=== PATIENT | female | born 1965 | race African-American/Black ===

== ENCOUNTER 2017-04-30 22:55 | Emergency (ER) | payer OTHER ==
[~2017-04-30] VITALS: Ht 167.6 cm; Wt 82.0 kg
[~2017-04-30 22:55] MED LIST: LISI-186 PO; METOPROLOL
[2017-05-01] MEDS ORDERED: ONDANSETRON 4MG ODT PO STA (00:48)
[2017-05-01] MEDS ORDERED: KETOROLAC 30MG/ML VIAL IV STA (00:48)
[2017-05-01] MEDS ORDERED: CLINDAMYCIN 600 MG in DEXTROSE 5% WATER 50 ML IV ONE (01:00)
[2017-05-01] MEDS ORDERED: HYDROCODONE/ACETAMINOPHEN 10/325MG TABLET PO ONE (01:30)
[2017-05-01 03:20] VITALS: BP 137/92
== END 2017-05-01 03:24 | disposition home or self-care (01) ==
LOC: ER 22:55
DX: K04.7 Periapical abscess without sinus (principal); I10 Essential (primary) hypertension; Z90.49 Acquired absence of other specified parts of digestive tract; Z88.6 Allergy status to analgesic agent
CPT/HCPCS: 96365; 96375; 99284; J1885; J3490; Q0162; Z7610; J7060

== ENCOUNTER 2018-03-31 16:21 | Emergency (ER) | payer OTHER ==
[~2018-03-31] VITALS: Ht 167.6 cm; Wt 86.0 kg
[2018-03-31] MEDS ORDERED: ACETAMINOPHEN 500MG TABLET PO ONE (22:30)
[2018-03-31] MEDS ORDERED: LIDOCAINE 5% PATCH TOP SCH (22:30)
[2018-04-01 00:21] VITALS: BP 150/96
== END 2018-04-01 00:24 | disposition home or self-care (01) ==
LOC: ER 18:06
DX: M54.6 Pain in thoracic spine (principal); I10 Essential (primary) hypertension; V49.49XA Driver injured in collision with other motor vehicles in traffic accident, initial encounter; Y93.89 Activity, other specified; Y92.414 Local residential or business street as the place of occurrence of the external cause
CPT/HCPCS: 72070; 99284

== ENCOUNTER 2019-11-28 23:09 | Emergency (ER) | payer OTHER ==
[~2019-11-28] VITALS: Ht 167.6 cm; Wt 87.0 kg
[2019-11-28 23:19] VITALS: BP 138/95
[2019-11-28] MEDS ORDERED: KETOROLAC 30MG/ML VIAL IM ONE (23:45)
== END 2019-11-29 02:56 | disposition home or self-care (01) ==
LOC: ER 23:09
DX: M54.5 Low back pain (principal); G89.29 Other chronic pain; M25.552 Pain in left hip; M25.551 Pain in right hip; I10 Essential (primary) hypertension; Z90.49 Acquired absence of other specified parts of digestive tract; Z88.6 Allergy status to analgesic agent; Z79.899 Other long term (current) drug therapy; W10.8XXA Fall (on) (from) other stairs and steps, initial encounter; Y93.01 Activity, walking, marching and hiking; Y92.89 Other specified places as the place of occurrence of the external cause; Y99.8 Other external cause status
CPT/HCPCS: 72131; 73521; 96372; 99284; J1885

== ENCOUNTER 2021-04-15 07:28 | Emergency (ER) | payer OTHER ==
[~2021-04-15] VITALS: Ht 172.7 cm; Wt 77.0 kg
[2021-04-15] MEDS ORDERED: SODIUM CHLORIDE 0.9% 1,000 ML IV ONE (07:45)
[2021-04-15 08:23] LABS: BASOPHILS % 0.9 % (0.0-2.0); EOSINOPHILS % 1.2 % (0.0-5.0); HEMATOCRIT. 31.3 % (36.0-48.0); HEMOGLOBIN. 10.2 g/dL (12.0-16.0); LYMPHOCYTES % 17.3 % (20.0-50.0); MEAN CORPUSCULAR HEMOGLOBIN 26.7 pg (28.0-32.0); MEAN CORPUSCULAR VOLUME 81.7 fL (81.0-99.0); MEAN PLATELET VOLUME 8.5 fl (7.4-10.4); MONOCYTES % 10.1 % (2.0-8.0); NEUTROPHILS % 70.5 % (40.0-76.0); PLATELET 183 x1000/uL (130-400); RED BLOOD CELL COUNT 3.83 mill/uL (4.2-5.4); RED CELL DISTRIBUTION WIDTH 13.9 % (11.6-14.6)
[2021-04-15 08:29] LABS: CHLORIDE 105 mEq/L (98-107)
[2021-04-15 08:32] LABS: PROTHROMBIN TIME 10.9 sec (9.6-11.0)
[2021-04-15 13:15] VITALS: BP 114/77
== END 2021-04-15 13:34 | disposition left against medical advice (07) ==
LOC: ER 07:46 → EDBEDREQ 13:21 → EDBEDREQTM 13:21 → ER 13:34 → ENRESERV 13:35 → CANRESERV 13:35 → CANBEDREQ 15:34
DX: G45.9 Transient cerebral ischemic attack, unspecified (principal); I10 Essential (primary) hypertension; Z90.49 Acquired absence of other specified parts of digestive tract; Z88.6 Allergy status to analgesic agent
CPT/HCPCS: 36415; 70450; 71045; 80053; 83605; 84145; 84484; 85025; 85610; 87040; 93005; 96360; 99285; J7030

== ENCOUNTER 2021-04-16 13:02 | Emergency (ER) | payer OTHER ==
[~2021-04-16] VITALS: Ht 167.6 cm; Wt 91.0 kg
[2021-04-16] MEDS ORDERED: SODIUM CHLORIDE 0.9% 1,000 ML IV ONE (18:15)
[2021-04-16] MEDS ORDERED: ACETAMINOPHEN 325MG TABLET PO ONE (18:30)
[2021-04-16 18:48] LABS: BASOPHILS % 0.6 % (0.0-2.0); EOSINOPHILS % 2.3 % (0.0-5.0); HEMATOCRIT. 32.9 % (36.0-48.0); HEMOGLOBIN. 10.8 g/dL (12.0-16.0); LYMPHOCYTES % 24.8 % (20.0-50.0); MEAN CORPUSCULAR HEMOGLOBIN 26.9 pg (28.0-32.0); MEAN CORPUSCULAR VOLUME 82.1 fL (81.0-99.0); MONOCYTES % 7.8 % (2.0-8.0); NEUTROPHILS % 64.5 % (40.0-76.0); PLATELET 198 x1000/uL (130-400); RED BLOOD CELL COUNT 4.01 mill/uL (4.2-5.4)
[2021-04-16 18:51] LABS: CHLORIDE 107 mEq/L (98-107)
[2021-04-16 20:00] VITALS: BP 131/87
== END 2021-04-16 20:08 | disposition home or self-care (01) ==
LOC: ER 13:02
DX: R22.0 Localized swelling, mass and lump, head (principal); E86.0 Dehydration; K21.9 Gastro-esophageal reflux disease without esophagitis; I10 Essential (primary) hypertension; Z88.6 Allergy status to analgesic agent; Z90.49 Acquired absence of other specified parts of digestive tract
CPT/HCPCS: 36415; 80053; 83880; 84484; 85025; 93005; 99284; J7030